=== PATIENT | female | born 1990 | race Caucasian/White ===

== ENCOUNTER 2016-07-25 21:56 | Outpatient (CLI) | payer MEDICAID ==
[~2016-07-25] VITALS: Ht 162.6 cm; Wt 76.9 kg
[~2016-07-25 21:56] MED LIST: PREN-46 PO
[2016-07-25 22:46] VITALS: Ht 162.6 cm; Wt 76.9 kg
[2016-07-25 22:47] VITALS: BP 123/78; PULSE 72; RESP 18
--- NOTE | 2016-07-26 01:47 | RADRPT ---
PROCEDURE: Limited OB ultrasound CLINICAL INDICATION: Contractions. TECHNIQUE: Limited sonographic evaluation of the gravid uterus was performed to assess the amnioti c fluid volume. COMPARISON: 03/29/2016. FINDINGS: Single live intrauterine with cardiac heart rate of 115 beats per minute is identifi ed. The amniotic -fluid volume is 8.26 cm cm,. Fetus is in cephalic presentation. The placenta is located right lateral. IMPRESSION: 1. Amniotic fluid volume 8.26 cm. RPTAT: HMVK .Tj Stewart MD, Date Time Electronically viewed and signed by .Tj Stewart MD, on 07/26/2016 01:46 .K/
[2016-07-26 02:35] LABS: ADD UMIC YES; URINE BILIRUBIN (Dip) NEGATIVE (NEGATIVE); URINE BLOOD (Dip) 2+ (NEGATIVE); URINE COLOR LT. YELLOW (YELLOW); URINE GLUCOSE (Dip) NEGATIVE (NEGATIVE); URINE KETONES (Dip) NEGATIVE (NEGATIVE); URINE LEUKOCYTE ESTERASE (Dip) NEGATIVE (NEGATIVE); URINE NITRITE (Dip) NEGATIVE (NEGATIVE); URINE TOTAL PROTEIN (Dip) NEGATIVE (NEGATIVE); URINE UROBILINOGEN (Dip) 0.2 E.U./dL (0.1-1.0)
[2016-07-26 02:47] LABS: BACTERIA,URINE FEW; SQUAMOUS EPITHELIAL CELL,UR MODERATE
[2016-07-26] MEDS ORDERED: ACETAMINOPHEN 325 MG TAB PO ONE (04:30)
--- NOTE | 2016-07-26 05:26 | TRIAGE ---
OB Triage Datetime Report Generated by CPN: 07/26/2016 05:25 Datetime: 07/26/2016 03:57 Stage of : OB Triage Labor Evaluation Frequency: 2-3 Monitor Mode: External Duration (sec)2399: 100-120 Quality: Mild Pattern: Normal: <= 5 Contractions in 10 Minutes Resting Tone [place]: Relaxed Heart Rate FHR Baseline Rate: 135 Monitor Mode: External US FHR Baseline Changes: No Baseline Change Variability: Moderate 6-25 bpm Accelerations: 15X15 Decelerations: None Category: Category I Vaginal Exam Dilatation (cms): 1.0 Effacement (%): 30 Station: -3 Exam By: A VALENTINA RN Cervix, Consistency: Firm Datetime: 07/26/2016 03:00 Labor Evaluation Frequency: 3-5 Monitor Mode: External Duration (sec)2399: 100-120 Quality: Mild Pattern: Normal: <= 5 Contractions in 10 Minutes Resting Tone [place]: Relaxed Heart Rate FHR Baseline Rate: 135 Monitor Mode: External US FHR Baseline Changes: No Baseline Change Variability: Moderate 6-25 bpm Accelerations: 15X15 Decelerations: None Category: Category I Datetime: 07/26/2016 02:00 Labor Evaluation Frequency: 2-6 Monitor Mode: External Duration (sec)2399: 100 Quality: Mild Pattern: Normal: <= 5 Contractions in 10 Minutes Resting Tone [place]: Relaxed Heart Rate FHR Baseline Rate: 135 Monitor Mode: External US FHR Baseline Changes: No Baseline Change Variability: Moderate 6-25 bpm Accelerations: 15X15 Decelerations: None Category: Category I Datetime: 07/26/2016 01:05 Stage of : OB Triage Datetime: 07/26/2016 01:00 Stage of : OB Triage Vaginal Exam Dilatation (cms): 1.0 Effacement (%): 30 Station: -3 Exam By: ALIA JASSO Vaginal Bleeding: None Cervix, Consistency: Firm Cervix, Position: Posterior Datetime: 07/25/2016 23:00 Labor Evaluation Frequency: IRREGULAR Monitor Mode: External Duration (sec)2399: 30-60 Quality: Mild Pattern: Normal: <= 5 Contractions in 10 Minutes Resting Tone [place]: Relaxed Heart Rate FHR Baseline Rate: 135 Monitor Mode: External US FHR Baseline Changes: No Baseline Change Variability: Moderate 6-25 bpm Accelerations: 15X15 Decelerations: None Category: Category I Datetime: 07/25/2016 22:50 Vaginal Exam Dilatation (cms): 0.0 Effacement (%): 30 Station: -3 Exam By: January MONTGOMERY RN Vaginal Bleeding: None Cervix, Consistency: Firm Cervix, Position: Posterior Datetime: 07/25/2016 22:32 EGA: 37.2 Datetime: 07/25/2016 22:28 Stage of : OB Triage Time of Arrival: 07/25/2016 21:50 Arrived By: Wheelchair Arrived From: Home Chief Complaint: CONTRACTIONS Movement: Present Rupture of Membranes: Denies Vaginal Discharge: Denies Recent Sexual Intercouse: Denies Abdominal Trauma: Not Applicable Time Provider Notified: 07/26/2016 03:35 Provider Notified: HADADIAN Initial Plan: CALL MD, EFM Maternal Assessment Level of Consciousness: Fully Conscious DTR's/Clonus: DTRs 2+; No Clonus Headache: Denies Blurred Vision: No Respiratory Effort: Unlabored; Regular Rhythm; Equal Expansion Breath Sounds, Left: Clear and Equal Breath Sounds, Right: Clear and Equal Nausea/Vomiting: Denies RUQ Epigastric Pain: Denies Lower Extremities Edema: None Degree: None Upper Extremities Edema: None Degree: None Facial Edema: None Temperature Route: Oral Fall Risk Assessment History of Falling: (0) No Secondary Diagnosis: (0) No Ambulatory Aid: (0) Bedrest/Nurse Assist IV Therapy: (0) No Gait: (0) Normal/Bedrest/Immobile Mental Status: (0) Oriented to Own Ability Fall Score: 0 Fall Risk Score Definition: No Risk: No action required Monitor Mode: External Monitor Mode: External US Pain Assessment Pain Scale: 8 Pain Presence: Intermittent Pain Type: Contraction Pain Location: Abdomen; Back
--- NOTE | 2016-07-26 07:58 | PN ---
Date/Time of Note Date/Time of Note DATE: 07/26/16 TIME: 07:53 OB Subjective Subjective Subjective 25 Year-old with SIUP at 37 weeks presents with a chief complaint of irreg ucs. She has been receiving her care with Dr. Gomez. She states good movement. She denies nausea, vomiting, shortness of breath, chest pain, headache, visual changes, vaginal bleeding or LOF. OB Objective Objective Objective General: Patient appears well, alert and oriented, NAD, appropriate mood and affect ABD: gravid, soft, non-tender. Back: No CVA tenderness (B/L) LE: No clubbing, cyanosis, edema, thigh or calf tenderness bilaterally FHT: 135 bpm , moderate variability with acceleration, no deceleration-category I Contractions: Q 3-6 min SVE: /30/-3/ceph/intact membrane, no cx changes in 3 hrs interval OB Assessment/Plan Other plan: 25 Year-old with SIUP at 37 weeks presents with irreg ucs w/o cx changes in interval exam - FHR: No sign of metabolic acidosis- Category I - Continuous EFM, toco - Reactive NST. STEVE: 8.3 cm - Symptoms and sign of labor, preeclampsia, kick count discussed with patient, she voiced understanding. All of her questions answered. - Patient was discharged home in stable condition with the appropriate discharge instructions provided. I would like patient to have close follow-up with her primary physician or outpatient clinic in 1-2 days or return to the ER for worsening symptoms or any other urgent concerns. RAGINI DAMON Jul 26, 2016 07:58
== END 2016-07-26 04:32 | disposition home or self-care (01) ==
LOC: L-D 21:56 → OBT 21:56
PROVIDERS: ATTEND Obstetrics & Gynecology
DX: O60.03 Preterm labor without delivery, third trimester (principal); Z3A.37 37 weeks gestation of pregnancy
CPT/HCPCS: 76815; 81001; 87086; Z7500; Z7610; 81003; G0463

== ENCOUNTER 2016-08-05 17:30 | Outpatient (CLI) | payer MEDICAID ==
[~2016-08-05] VITALS: Ht 154.9 cm; Wt 76.6 kg
[2016-08-05 18:17] VITALS: BP 160/83; RESP 18; Ht 154.9 cm; Wt 76.6 kg
--- NOTE | 2016-08-05 20:29 | PN ---
Date/Time of Note Date/Time of Note DATE: 08/05/16 TIME: 20:26 OB Subjective Subjective Subjective Patient is a 25-year-old multiparous at 39+ weeks of gestation She presents for rule out labor OB Objective Objective Objective Cervix 1 cm per nurse NST reactive [place] irregular OB Assessment/Plan Reason for admission: other Other Assessment: Patient is not in active labor Other plan: DC home Patient instructed to return if leaking fluid, vaginal bleeding, irregular contractions are no movement MAXWELL STINSON Aug 05, 2016 20:29
[2016-08-05] MEDS ORDERED: ACETAMINOPHEN 325 MG TAB PO ONE (20:30)
== END 2016-08-05 20:30 | disposition home or self-care (01) ==
LOC: OBT 17:30 → L-D 17:31 → OBT 20:30
PROVIDERS: ATTEND Obstetrics & Gynecology
DX: O47.03 False labor before 37 completed weeks of gestation, third trimester (principal); Z3A.39 39 weeks gestation of pregnancy
CPT/HCPCS: Z7500; Z7610; G0463

== ENCOUNTER 2016-08-13 08:19 | Inpatient (IN) | payer MEDICAID ==
[~2016-08-13] VITALS: Ht 162.6 cm; Wt 77.0 kg
[2016-08-13 08:26] VITALS: Ht 162.6 cm; Wt 77.0 kg
[2016-08-13 08:27] VITALS: BP 135/93; PULSE 86; RESP 20
[2016-08-13] MEDS ORDERED: IBUPROFEN 600 MG TAB PO PRN (08:30)
[2016-08-13] MEDS ORDERED: LIDOCAINE 1% (MPF) 30 ML INJ INJ PRN (08:30)
[2016-08-13] MEDS ORDERED: MISOPROSTOL 200 MCG TAB PR PRN ×2 (08:30→11:30)
[2016-08-13] MEDS ORDERED: OXYTOCIN 30 UNITS/LR 500 ML IV PRN ×2 (08:30→11:30)
[2016-08-13] MEDS ORDERED: CARBOPROST 250 MCG INJ IM PRN ×2 (08:30→11:30)
[2016-08-13] MEDS ORDERED: OXYTOCIN 30 UNITS/LR 500 ML IV SCH ×2 (08:30)
[2016-08-13] MEDS ORDERED: METHYLERGONOVINE 0.2 MG INJ IM PRN ×2 (08:30→11:30)
[2016-08-13] MEDS ORDERED: BUTORPHANOL 2 MG INJ IV PRN (08:30)
--- NOTE | 2016-08-13 08:43 | TRIAGE ---
OB Triage Datetime Report Generated by CPN: 08/13/2016 08:42 Datetime: 08/13/2016 08:23 Arrived By: Ambulatory Arrived From: Home Chief Complaint: SROM AT 0800 Movement: Present Contractions: Irregular Rupture of Membranes: Ruptured Vaginal Bleeding: None Vaginal Discharge: Denies Recent Sexual Intercouse: Denies Abdominal Trauma: Not Applicable Patient Complaints: Contractions; Other Time Provider Notified: 08/13/2016 08:20 Provider Notified: DR STINSON Initial Plan: EFM,ALL DR STINSON Maternal Assessment Level of Consciousness: Fully Conscious DTR's/Clonus: DTRs 2+ Headache: Denies Blurred Vision: No Nausea/Vomiting: Denies RUQ Epigastric Pain: Denies Facial Edema: None Labor Evaluation Frequency: 2-3 Monitor Mode: External Duration (sec)2399: 50 Quality: Moderate Pattern: Normal: <= 5 Contractions in 10 Minutes Resting Tone [place]: Relaxed Heart Rate FHR Baseline Rate: 145 Monitor Mode: External US FHR Baseline Changes: No Baseline Change Variability: Minimal - Undetectable to <=5 bpm Decelerations: Variable Pain Assessment Pain Scale: 3 Pain Presence: Intermittent Pain Type: Contraction Pain Location: Abdomen Vaginal Exam Dilatation (cms): 3.0 Effacement (%): 60 Station: -2 Exam By: PJ JASSO Membrane Status: Ruptured Membranes Rupture Method: Spontaneous Amniotic Fluid Color: Heavy Meconium Amniotic Fluid Amount: Moderate Vaginal Bleeding: None Cervix, Consistency: Moderate Cervix, Position: Midposition Presentation 'A': Cephalic Datetime: 08/05/2016 20:25 Stage of : OB Triage Datetime: 08/05/2016 20:20 Stage of : OB Triage Datetime: 08/05/2016 20:11 Stage of : OB Triage Vaginal Exam Dilatation (cms): 1.0 Effacement (%): 50 Station: -3 Exam By: January MONTGOMERY RN Vaginal Bleeding: None Cervix, Consistency: Firm Cervix, Position: Posterior Datetime: 08/05/2016 20:00 Labor Evaluation Frequency: 2-5 Monitor Mode: External Duration (sec)2399: 60-120 Quality: Mild Pattern: Normal: <= 5 Contractions in 10 Minutes Resting Tone [place]: Relaxed Heart Rate FHR Baseline Rate: 135 Monitor Mode: External US FHR Baseline Changes: No Baseline Change Variability: Moderate 6-25 bpm Accelerations: 15X15 Decelerations: None Category: Category I Datetime: 08/05/2016 19:11 Assessment Type: Triage Maternal Assessment Level of Consciousness: Fully Conscious DTR's/Clonus: DTRs 2+; No Clonus Headache: Denies Blurred Vision: No Respiratory Effort: Unlabored; Regular Rhythm; Equal Expansion Breath Sounds, Left: Clear and Equal Breath Sounds, Right: Clear and Equal Nausea/Vomiting: Denies RUQ Epigastric Pain: Denies Facial Edema: None Fall Risk Assessment History of Falling: (0) No Secondary Diagnosis: (0) No Ambulatory Aid: (0) Bedrest/Nurse Assist IV Therapy: (0) No Gait: (0) Normal/Bedrest/Immobile Mental Status: (0) Oriented to Own Ability Fall Score: 0 Fall Risk Score Definition: No Risk: No action required Datetime: 08/05/2016 19:00 Time of Arrival: 08/05/2016 17:30 EGA: 38.6 Arrived From: Home Chief Complaint: UC'S Movement: Present Rupture of Membranes: Denies Vaginal Discharge: Denies Recent Sexual Intercouse: Denies Time Provider Notified: 08/05/2016 18:31 Provider Notified: DR CUNNINGHAM Initial Plan: CALL RENE PALACIOS Datetime: 08/05/2016 18:31 Stage of : OB Triage Datetime: 08/05/2016 18:12 Stage of : OB Triage Assessment Type: Triage Maternal Assessment Level of Consciousness: Fully Conscious DTR's/Clonus: DTRs 2+; No Clonus Headache: Denies Blurred Vision: No Respiratory Effort: Unlabored; Regular Rhythm; Equal Expansion Breath Sounds, Left: Clear and Equal Breath Sounds, Right: Clear and Equal Nausea/Vomiting: Denies RUQ Epigastric Pain: Denies Facial Edema: None Temperature Route: Axillary Fall Risk Assessment History of Falling: (0) No Secondary Diagnosis: (0) No Ambulatory Aid: (0) Bedrest/Nurse Assist IV Therapy: (0) No Gait: (0) Normal/Bedrest/Immobile Mental Status: (0) Oriented to Own Ability Fall Score: 0 Fall Risk Score Definition: No Risk: No action required Labor Evaluation Frequency: X1 Monitor Mode: External Duration (sec)2399: 80 Quality: Moderate Pattern: Normal: <= 5 Contractions in 10 Minutes Resting Tone [place]: Relaxed Heart Rate FHR Baseline Rate: 145 Monitor Mode: External US Variability: Moderate 6-25 bpm Decelerations: None Category: Category I Pain Assessment Pain Scale: 4 Pain Presence: Intermittent Pain Type: Cramping; Contraction Pain Location: Abdomen Pain Goal: 3 Pain Relief Measures: Comfort Measures Vaginal Exam Dilatation (cms): 1.0 Effacement (%): 50 Station: -3 Exam By: S CORRINE Membrane Status: Intact Datetime: 07/26/2016 04:30 Time of Arrival: 08/05/2016 17:30 EGA: 38.6 Arrived By: Ambulatory Arrived From: Home Chief Complaint: C/O UC'S Q1-2 MIN, DENIES BLEEDING OR LEAKING OF FLUID Movement: Present Contractions: Irregular Rupture of Membranes: Denies Vaginal Discharge: Denies Recent Sexual Intercouse: Denies Abdominal Trauma: Not Applicable Patient Complaints: Contractions; Cramping Initial Plan: MONITOR,VE Datetime: 07/25/2016 22:32 EGA: 37.2 Datetime: 07/25/2016 22:28 Fall Score: 0 Fall Risk Score Definition: No Risk: No action required
--- NOTE | 2016-08-13 08:45 | HP ---
Date/Time of Note Date/Time of Note DATE: 08/13/16 TIME: 08:37 OB - History Hx of Present Chief Complaint: Multiparous patient at term gestation with gross rupture of membranes Estimated Due Date: Aug 13, 2016 : 4 Para: 3 Past Family/Social History * Past Medical, Surgical, Family and Obstetric Histories reviewed from chart. OB Admission Exam Vital Signs Vital Signs Vital Signs Date Time Temp Pulse Resp B/P Pulse Ox O2 Delivery O2 Flow Rate FiO2 08/13/16 08:27 98.1 86 20 135/93 Room Air Physical Exam HEENT: WNL Abdomen: WNL Cervical Dilatation: 3cm Effacement: 50% Station: -2 Membranes: Ruptured Amniotic Fluid: Thick Meconium Heart Rate: 140's Accelerations: Accelerations Present Decelerations: Variable Decelerations Varibility: Moderate Contractions on Admission: < 5 Minutes Apart Intensity: Moderate OB Assessment/Plan Reason for admission: active labor, rupture of membranes Other Assessment: Patient is in active labor with rupture of membranes Plan: Expectant Management Induction Method: per Pitocin Protocol Other plan: Admit to labor and delivery OB admission labs and PIH labs IV antibiotic prophylaxis Oxytocin augmentation Epidural anesthesia as needed Plan for normal spontaneous vaginal delivery MAXWELL STINSON Aug 13, 2016 08:45
[2016-08-13] MEDS ORDERED: PENICILLIN G K 5,000,000 UNITS in DEXTROSE 5% 100 ML IVPB ONE (09:00)
[2016-08-13] MEDS ORDERED: PENICILLIN G K 2,500,000 UNITS in DEXTROSE 5% 50 ML IVPB SCH (09:00)
[2016-08-13] MEDS ORDERED: AMPICILLIN 2 GM/NS (PMX) 100 ML IV ONE (09:00)
[2016-08-13] MEDS ORDERED: AMPICILLIN 2 GM/NS (PMX) 100 ML ONE (09:01)
[2016-08-13 09:11] LABS: ADD SCAN DIFF NO
[2016-08-13 09:15] LABS: BASOPHIL # 0.1 10^3/ul (0.0-0.1); BASOPHILS % 0.4 % (0.0-2.0); EOSINOPHILS # 0.1 10^3/ul (0.0-0.5); EOSINOPHILS % 0.7 % (0.0-7.0); HEMATOCRIT 40.7 % (37.0-47.0); HEMOGLOBIN 13.7 g/dl (12.0-16.0); LYMPHOCYTES # 2.4 10^3/ul (0.8-2.9); LYMPHOCYTES % 21.3 % (15.0-51.0); MEAN CORPUSCULAR HEMOGLOBIN 31.1 pg (29.0-33.0); MEAN CORPUSCULAR HGB CONC 33.7 g/dl (32.0-37.0); MEAN CORPUSCULAR VOLUME 92.5 fl (82.0-101.0); MEAN PLATELET VOLUME 11.5 fl (7.4-10.4); MONOCYTE # 0.7 10^3/ul (0.3-0.9); PLATELET COUNT 264 10^3/UL (140-415); RED CELL DISTRIBUTION WIDTH 13.6 % (11.5-14.5); WHITE BLOOD COUNT 11.3 10^3/ul (4.8-10.8)
[2016-08-13 09:22] LABS: ADD UMIC YES; URINE BILIRUBIN (Dip) 1+ (NEGATIVE); URINE BLOOD (Dip) 3+ (NEGATIVE); URINE COLOR YELLOW (YELLOW); URINE GLUCOSE (Dip) NEGATIVE (NEGATIVE); URINE KETONES (Dip) NEGATIVE (NEGATIVE); URINE LEUKOCYTE ESTERASE (Dip) TRACE (NEGATIVE); URINE NITRITE (Dip) NEGATIVE (NEGATIVE); URINE TOTAL PROTEIN (Dip) 1+ (NEGATIVE); URINE UROBILINOGEN (Dip) 0.2 E.U./dL (0.1-1.0)
[2016-08-13 09:28] LABS: ALBUMIN 3.5 g/dl (3.3-4.9); POTASSIUM 3.7 mmol/L (3.5-5.1)
[2016-08-13 09:30] LABS: BILIRUBIN,INDIRECT 0.2 mg/dl (0-1.1); BILIRUBIN,TOTAL 0.2 mg/dl (0.2-1.3); CREATININE 0.53 mg/dl (0.44-1.00)
[2016-08-13] MEDS ORDERED: LACTATED RINGER'S 1,000 ML IV PRN (09:30)
[2016-08-13 09:31] LABS: ALBUMIN/GLOBULIN RATIO 0.83; INR 0.82; PROTIME 11.3 Sec (12.2-14.2); PT RATIO 0.9; TOTAL PROTEIN 7.7 g/dl (6.1-8.1)
[2016-08-13 09:32] LABS: PARTIAL THROMBOPLASTIN TIME 25.2 Sec (25.0-35.0)
[2016-08-13] MEDS: LACTATED RINGER'S 1,000 ML IV SCH ×2 (09:37→09:59)
[2016-08-13 09:45] LABS: BACTERIA,URINE MODERATE
[2016-08-13 09:46] LABS: ICTOTEST NEGATIVE (NEGATIVE)
[2016-08-13] MEDS ORDERED: DIPHENHYDRAMINE 50 MG INJ IV PRN (10:00)
[2016-08-13] MEDS ORDERED: HYDROmorphONE 1 MG/ML SYG IV PRN ×2 (10:00)
[2016-08-13] MEDS ORDERED: KETOROLAC 30 MG INJ IV PRN (10:00)
[2016-08-13] MEDS ORDERED: NALOXONE (0.4 MG/ML) INJ IV PRN (10:00)
[2016-08-13] MEDS ORDERED: ONDANSETRON 4 MG INJ IV PRN ×2 (10:00→11:30)
[2016-08-13] MEDS ORDERED: FENTAnyl 2MCG/ML-ROPIV 0.2% 100 ML BAG EPI SCH (10:00)
[2016-08-13 10:42] LABS: CBV COHb 1.2 %; CBV Oxygen Sat 75.4 mmHG; CBV Total Hemglobin 15.7 g/dl; Cord Blood Venous AADO2 80.1 mmHg; Cord Blood Venous pO2 32.2 mmHG (15.0-45.0); MODE ROOM AIR; MetHgb Cord Venous 0.7 %; Sample Type CBV
[2016-08-13] MEDS: OXYTOCIN 30 UNITS/LR 500 ML IV SCH ×2 (11:01→12:46)
--- NOTE | 2016-08-13 11:26 | LDN ---
Date/Time of Note Date/Time of Note DATE: 08/13/16 TIME: 11:24 Delivery Summary Weight 6 lbs. 14 oz. Weeks of Gestation 40 Placenta Delivered: Spontaneously Meconium: Thick Episiotomy: No Anesthesia type: Epidural Sponge & Needle done & correct: Yes All needle counts correct: Yes Any foreign bodies felt in the: No Problems: Delivery Information Apgars 1 Minute: 9 5 Minute: 9 Suctioning Nose & mouth suctioned at michelle: Yes Umbilical Cord Umbilical cord with: 3 Vessels Cord presentations: nuchal cord (x2 reduced manually) Cord Blood was obtained: Yes MAXWELL STINSON Aug 13, 2016 11:26
[2016-08-13] MEDS ORDERED: ACETAMINOPHEN 325 MG TAB PO PRN (11:30)
[2016-08-13 12:30] VITALS: BP 143/80; PULSE 60; RESP 18
[2016-08-13] MEDS ORDERED: AMPICILLIN 1 GM/NS (PMX) 50 ML IV SCH (13:00)
[2016-08-13] MEDS ORDERED: WITCH HAZEL/GLYCERIN PAD PR PRN (14:30)
[2016-08-13] MEDS ORDERED: BENZOCAINE 20% 56 ML SPRAY TOP PRN (14:30)
[2016-08-13] MEDS ORDERED: LANOLIN 7 GM TUBE TOP PRN (14:30)
[2016-08-13] MEDS: CEFAZOLIN 1 GM/50 ML (PMX) 50 ML IV SCH ×2 (14:46→21:43)
[2016-08-13] MEDS: IBUPROFEN 600 MG TAB PO SCH ×2 (15:10→23:31)
[2016-08-13 15:50] VITALS: BP 114/60; PULSE 61; RESP 18
[2016-08-13] MEDS: LACTATED RINGER'S 1,000 ML IV* SCH (17:30)
[2016-08-13 20:00] VITALS: BP 117/71; PULSE 72; RESP 18
[2016-08-14] VITALS: BP 122/83; PULSE 64; RESP 18
[2016-08-14 04:10] VITALS: BP 99/61; PULSE 75; RESP 20
[2016-08-14] MEDS: LACTATED RINGER'S 1,000 ML IV* SCH (04:27)
[2016-08-14] MEDS: CEFAZOLIN 1 GM/50 ML (PMX) 50 ML IV SCH (05:41)
[2016-08-14] MEDS: IBUPROFEN 600 MG TAB PO SCH ×4 (05:47→23:41)
[2016-08-14 07:32] LABS: ADD SCAN DIFF NO
[2016-08-14 07:39] LABS: BASOPHIL # 0.1 10^3/ul (0.0-0.1); BASOPHILS % 0.6 % (0.0-2.0); EOSINOPHILS # 0.1 10^3/ul (0.0-0.5); EOSINOPHILS % 1.2 % (0.0-7.0); HEMATOCRIT 33.5 % (37.0-47.0); HEMOGLOBIN 10.8 g/dl (12.0-16.0); LYMPHOCYTES # 3.1 10^3/ul (0.8-2.9); LYMPHOCYTES % 31.4 % (15.0-51.0); MEAN CORPUSCULAR HEMOGLOBIN 30.4 pg (29.0-33.0); MEAN CORPUSCULAR HGB CONC 32.2 g/dl (32.0-37.0); MEAN CORPUSCULAR VOLUME 94.4 fl (82.0-101.0); MEAN PLATELET VOLUME 11.6 fl (7.4-10.4); MONOCYTE # 0.6 10^3/ul (0.3-0.9); MONOCYTES % 5.7 % (0.0-11.0); NEUTROPHIL # 5.9 10^3/ul (1.6-7.5); NEUTROPHILS % 60.4 % (39.0-77.0); PLATELET COUNT 205 10^3/UL (140-415); RED BLOOD COUNT 3.55 10^6/ul (4.20-5.40); RED CELL DISTRIBUTION WIDTH 13.8 % (11.5-14.5); WHITE BLOOD COUNT 9.8 10^3/ul (4.8-10.8)
[2016-08-14 08:01] LABS: ALBUMIN 2.5 g/dl (3.3-4.9); POTASSIUM 3.9 mmol/L (3.5-5.1)
[2016-08-14 08:03] LABS: CREATININE 0.55 mg/dl (0.44-1.00)
[2016-08-14 08:04] LABS: ALBUMIN/GLOBULIN RATIO 0.8; BILIRUBIN,INDIRECT 0.1 mg/dl (0-1.1); BILIRUBIN,TOTAL 0.1 mg/dl (0.2-1.3); TOTAL PROTEIN 5.6 g/dl (6.1-8.1)
[2016-08-14 08:05] LABS: CALCIUM 7.9 mg/dl (8.4-10.2)
[2016-08-14 08:10] VITALS: BP 116/63; PULSE 65; RESP 18
--- NOTE | 2016-08-14 08:38 | QN ---
Documentation Comment PPD#1 S: Pt w/o c/o this AM. Ambulating and voiding w/o difficulty. Passed stool. Anup reg diet w/o N/V. Pain c/w PO meds. well. Bleeding like a period. O: VS 98.7 65 116/63 18 Gen: well appearing, NAD CV: RRR, nl s1s2 Resp: CTAB Abd: soft, NTND, NABS, FF at umbilicus Ext: symmetric BLE, nontender, no edema Admission Hgb 13.7-> PPD#1 Hgb 10.8 A/P: S/p ->Continue routine care -> support ->Likely d/c home tomorrow COREEN CUNNINGHAM MD Aug 14, 2016 08:38
[2016-08-14 15:20] VITALS: BP 108/66; PULSE 77; RESP 18
[2016-08-14 20:00] VITALS: BP 113/63; PULSE 74; RESP 18
[2016-08-15 04:00] VITALS: BP 105/62; PULSE 66; RESP 18
[2016-08-15] MEDS: IBUPROFEN 600 MG TAB PO SCH ×2 (05:40→11:22)
[2016-08-15 07:20] VITALS: BP 119/70; PULSE 62; RESP 19
--- NOTE | 2016-08-15 11:43 | DS ---
Date/Time of Note Date/Time of Note DATE: 08/15/16 TIME: 11:42 Discharge Summary Admission/Discharge Info Admit Date/Time Aug 13, 2016 at 08:20 Discharge Date/Time Final Diagnosis term Patient Condition: Stable Hospital Course unremarkable Home Meds Reported Medications Vit #108/Iron/Fa ( ONE TABLET) 1 Each Tablet, 1 EACH PO AM 03/19/14 LB KEATING MD Aug 15, 2016 11:43
--- NOTE | 2016-08-15 11:43 | PD.PPDC ---
OUTPATIENT PSYCHIATRIST Discharge Instruction Condition Patient Condition: Stable Diet Diet: Resume Regular Diet Activity/Restrictions Activity: Normal Activity May Shower Restrictions: No Exercising No Lifting No Driving No Sexual Activity Nothing in the Vagina No [place] No Tampons, douche Follow-up Follow-up with Physician: 3 Return to clinic for LOT BOSS Instructions: Fever greater than 101 Chills Worsening abdominal pain Excessive Vaginal Bleeding More than 2 pads per hour Unable to tolerate diet OB Instructions: Breast Tenderness Depression Blurried Vision Headache Surgical Instructions: Incisional Drainage Incisional Redness LB KEATING MD Aug 15, 2016 11:43
[2016-08-16 13:26] LABS: RUBELLA ANTIBODY - IGG 2.38 index
== END 2016-08-15 13:00 | disposition home or self-care (01) | DRG 775 ==
LOC: OBT 08:19 → L-D 08:19 → OBT 08:20 → L-D 08:20 → PP1 12:18
PROVIDERS: ADMIT Obstetrics & Gynecology; ATTEND Obstetrics & Gynecology
PROC: 10E0XZZ Delivery of Products of Conception, External Approach (ICD-10-PCS; principal; 2016-08-13)
DX: O69.81X0 Labor and delivery complicated by cord around neck, without compression, not applicable or unspecified (principal); O48.0 Post-term pregnancy; Z3A.40 40 weeks gestation of pregnancy; Z37.0 Single live birth
CPT/HCPCS: 36415; 62319; 80053; 81001; 81003; 82803; 84560; 85025; 85384; 85610; 85730; 86592; 86762; 86900; 86901; 87340; 88307; 99464; G0463; J0290; J0690; J2590; J3010; J7120